=== PATIENT | female | born 1965 | race Caucasian/White ===

== ENCOUNTER → 2020-12-07 06:50 | Outpatient (CLI) | payer BC, SELFPAY ==
[2020-12-07 17:59] LABS: SARS-CoV-2 RNA PCR Negative
== END ==
PROVIDERS: PCP Internal Medicine
DX: C50.411 Malignant neoplasm of upper-outer quadrant of right female breast (principal); Z17.1 Estrogen receptor negative status [ER-]; Z20.822 Contact with and (suspected) exposure to COVID-19
CPT/HCPCS: C9803; U0003; U0005